=== PATIENT | female | born 1995 ===

== ENCOUNTER 2018-01-08 14:56 | Emergency (ER) | payer OTHER ==
[~2018-01-08] VITALS: Ht 157.5 cm; Wt 57.2 kg
[2018-01-08] MEDS ORDERED: ATABEX DHA 200200 MG (15:35)
== END 2018-01-08 19:26 | disposition home or self-care (01) ==
LOC: ER 14:56
DX: J11.1 Influenza due to unidentified influenza virus with other respiratory manifestations (principal); B34.9 Viral infection, unspecified